=== PATIENT | female | born 1950 | race Caucasian/White ===

== ENCOUNTER → 2018-02-13 | Outpatient (CLI) | payer MEDICARE ==
[~2018-02-13] MED LIST: LEVE500T53 PO; LEVO50TA PO; ZONI50CA2 PO
[2018-02-13 12:18] LABS: BASOPHILS # (AUTO) 0.02 x10^3/uL (0-0.1); BASOPHILS % (AUTO) 0 % (0-1); EOSINOPHILS # (AUTO) 0.08 x10^3/uL (0-0.4); EOSINOPHILS % (AUTO) 1 % (1-7); LYMPHOCYTES # (AUTO) 1.62 x10^3/uL (1-3.4); LYMPHOCYTES % (AUTO) 28 % (22-44); MD NO; MEAN CORPUSCULAR HEMOGLOBIN 29.2 pg (27.0-34.8); MEAN CORPUSCULAR HGB CONC 33.3 g/dL (32.4-35.8); MEAN CORPUSCULAR VOLUME 87.9 fL (80-100); MEAN PLATELET VOLUME 8.7 fL (7.4-10.4); MONOCYTES # (AUTO) 0.44 x10^3/uL (0.2-0.8); MONOCYTES % (AUTO) 8 % (2-9); NEUTROPHILS # (AUTO) 3.59 x10^3/uL (1.8-6.8); NEUTROPHILS % (AUTO) 62 % (42-75); PLATELET COUNT 279 x10^3/uL (130-400); RED CELL DISTRIBUTION WIDTH 13.4 % (9.6-15.2)
[2018-02-13 12:20] LABS: MICROSCOPIC NOT IND
[2018-02-13 12:25] LABS: CULTURE INDICATED? NO
[2018-02-13 12:29] LABS: INTERNATIONAL NORMALIZED RATIO 0.99 (0.93-1.1); PROTHROMBIN TIME 10.5 Seconds (9.6-11.5)
[2018-02-13 12:30] LABS: ALBUMIN 4.2 g/dL (3.4-5.0); ANION GAP 7 mmol/L (5-15); CALCIUM 8.8 mg/dL (8.5-10.1); CHLORIDE 107 mmol/L (98-107)
[2018-02-13 12:34] LABS: ALANINE AMINOTRANSFERASE 28 U/L (12-78); ALKALINE PHOSPHATASE 79 U/L (45-117); BILIRUBIN,TOTAL 1.3 mg/dL (0.2-1.0); CREATININE 0.79 mg/dL (0.55-1.02); TOTAL PROTEIN 7.8 g/dL (6.4-8.2)
== END | disposition home or self-care (01) ==
LOC: STAR 11:12
PROVIDERS: ATTEND Neurological Surgery
DX: Z01.818 Encounter for other preprocedural examination (principal); M50.323 Other cervical disc degeneration at C6-C7 level; M48.02 Spinal stenosis, cervical region
CPT/HCPCS: 36415; 71046; 72050; 80053; 81003; 85025; 85610; 85730; 93005

== ENCOUNTER 2018-02-22 07:00 | Inpatient (IN) | payer MEDICARE ==
[~2018-02-22] VITALS: Ht 167.6 cm; Wt 57.6 kg
[2018-02-23] MEDS ORDERED: ZONI25CA2 PO (07:59)
[2018-02-23 08:01] VITALS: BP 181/83
[2018-02-23] MEDS ORDERED: FENTANYL PF 250 MCG/5ML ONE (08:12)
[2018-02-23] MEDS ORDERED: MIDAZOLAM 1 MG/ML, 2ML ONE (08:12)
[2018-02-23] MEDS ORDERED: BUPIVACAINE/PF-EPI 0.5% 1:200K ONE (08:21)
[2018-02-23] MEDS ORDERED: THROMBIN 5,000 UNIT VIAL TP ONE (08:21)
[2018-02-23] MEDS ORDERED: BACITRACIN 50,000 UNIT ONE (08:21)
[2018-02-23] MEDS ORDERED: ONDANSETRON 2MG/ML, 2ML ONE (08:23)
[2018-02-23] MEDS ORDERED: SUCCINYLCHOLINE 20 MG/ML, 10ML ONE (08:23)
[2018-02-23] MEDS ORDERED: CEFAZOLIN 1,000 MG ONE (08:23)
[2018-02-23] MEDS ORDERED: NEOSTIGMINE 1 MG/ML, 10ML ONE (08:23)
[2018-02-23] MEDS ORDERED: PROPOFOL 50 ML ONE ×2 (08:23→09:51)
[2018-02-23] MEDS ORDERED: PROPOFOL 10 MG/ML, 20ML ONE (08:23)
[2018-02-23] MEDS ORDERED: ROCURONIUM 10MG/ML,5ML ONE (08:23)
[2018-02-23] MEDS ORDERED: GLYCOPYRROLATE 0.2MG/1ML, 5ML ONE (08:23)
[2018-02-23] MEDS ORDERED: DEXAMETHASONE 4 MG/ML, 1ML ONE (08:23)
[2018-02-23] MEDS ORDERED: PROMETHAZINE 12.5 MG SUPP PR PRN (09:00)
[2018-02-23] MEDS ORDERED: ONDANSETRON ODT 8 MG PO PRN (09:00)
[2018-02-23] MEDS ORDERED: ACETAMINOPHEN 325 MG TABLET PO PRN (09:00)
[2018-02-23] MEDS ORDERED: MEPERIDINE/PF 25MG/0.5ML IVPush PRN (09:00)
[2018-02-23] MEDS ORDERED: PROMETHAZINE 25 MG/ML, 1ML IM PRN ×2 (09:00)
[2018-02-23] MEDS ORDERED: PROMETHAZINE 25 MG/ML, 1ML IV PRN (09:00)
[2018-02-23] MEDS ORDERED: FENTANYL PF 100 MCG/2ML IV PRN (09:00)
[2018-02-23] MEDS ORDERED: PROMETHAZINE 25 MG SUPP PR PRN (09:00)
[2018-02-23] MEDS ORDERED: MORPHINE SULFATE 4 MG/ML, 1ML IVPush PRN (09:00)
[2018-02-23] MEDS ORDERED: LABETALOL 5MG/ML, 20ML IV PRN ×2 (09:00→14:00)
[2018-02-23] MEDS ORDERED: OXYcodone 5 MG/5 ML ORAL.SOL UDC PO PRN (09:00)
[2018-02-23] MEDS ORDERED: hydrALAzine 20 MG/ML, 1ML IV PRN (09:00)
[2018-02-23] MEDS ORDERED: ONDANSETRON 2MG/ML, 2ML IV PRN ×2 (09:00→14:00)
[2018-02-23] MEDS ORDERED: PHENYLEPHRINE 10 MG/ML ONE (09:08)
[2018-02-23] MEDS ORDERED: HYDROmorphone 2 MG/ML, 1ML ONE (11:11)
[2018-02-23] MEDS ORDERED: OXYcodone 5 MG/5 ML ORAL.SOL UDC ONE (11:11)
[2018-02-23] MEDS: HYDROmorphone 2 MG/ML, 1ML IVPush PRN ×2 (11:25→11:33)
[2018-02-23] MEDS ORDERED: METHOCARBAMOL 1,000 MG in DEXTROSE 5% 100 ML IV ONE ×2 (11:30→14:00)
[2018-02-23] MEDS ORDERED: GLYCOPYRROLATE 0.4 MG/2 ML, 2ML ONE (11:31)
[2018-02-23 12:45] VITALS: BP 175/92
[2018-02-23] MEDS ORDERED: PHARMACY MAY ADJ FOR RENAL FX MC PRN (13:00)
[2018-02-23] MEDS: D5%-0.9% NACL+KCL 20MEQ 1,000 ML IV SCH (13:57)
[2018-02-23] MEDS ORDERED: HYDROmorphone 2 MG/ML, 1ML IM PRN (14:00)
[2018-02-23] MEDS ORDERED: HYDROmorphone 2 MG/ML, 1ML IVPush PRN (14:00)
[2018-02-23] MEDS ORDERED: BISACODYL 10 MG SUPP PR PRN (14:00)
[2018-02-23] MEDS ORDERED: HYDROcodone/APAP 5/325 TABLET PO PRN (14:00)
[2018-02-23] MEDS ORDERED: DIPHENHYDRAMINE 50 MG/ML, 1ML IM PRN (14:00)
[2018-02-23] MEDS ORDERED: METHOCARBAMOL 750 MG in DEXTROSE 5% 100 ML IV SCH (14:00)
[2018-02-23] MEDS ORDERED: MAGNESIUM HYDROXIDE 8%, 30ML UDC PO PRN (14:00)
[2018-02-23] MEDS ORDERED: DIPHENHYDRAMINE 50 MG/ML, 1ML IVPush PRN (14:00)
[2018-02-23] MEDS ORDERED: DIPHENHYDRAMINE 50 MG CAPSULE PO PRN (14:00)
[2018-02-23] MEDS ORDERED: METHOCARBAMOL 750 MG TABLET PO SCH (14:00)
[2018-02-23] MEDS: OXYcodone/APAP 5/325MG TABLET PO PRN ×2 (14:49→20:24)
[2018-02-23] MEDS: CEFAZOLIN PMX 1GM/50ML 50 ML IVPB SCH (16:34)
[2018-02-23 20:00] VITALS: BP 95/50
[2018-02-23] MEDS ORDERED: ZONISAMIDE 50 MG CAPSULE PO SCH (21:00)
[2018-02-23] MEDS: METHOCARBAMOL 750 MG in DEXTROSE 5% 100 ML IV SCH (22:33)
[2018-02-24 00:08] VITALS: BP 137/72
[2018-02-24] MEDS: CEFAZOLIN PMX 1GM/50ML 50 ML IVPB SCH (01:15)
[2018-02-24 03:35] VITALS: BP 118/71
[2018-02-24] MEDS: METHOCARBAMOL 750 MG in DEXTROSE 5% 100 ML IV SCH (05:35)
[2018-02-24 05:40] LABS: BASOPHILS # (AUTO) 0.02 x10^3/uL (0-0.1); BASOPHILS % (AUTO) 0 % (0-1); EOSINOPHILS # (AUTO) 0.01 x10^3/uL (0-0.4); EOSINOPHILS % (AUTO) 0 % (1-7); LYMPHOCYTES # (AUTO) 1.65 x10^3/uL (1-3.4); LYMPHOCYTES % (AUTO) 16 % (22-44); MD NO; MEAN CORPUSCULAR HGB CONC 33.9 g/dL (32.4-35.8); MEAN CORPUSCULAR VOLUME 88.6 fL (80-100); MONOCYTES # (AUTO) 0.93 x10^3/uL (0.2-0.8); MONOCYTES % (AUTO) 9 % (2-9); NEUTROPHILS # (AUTO) 7.66 x10^3/uL (1.8-6.8); NEUTROPHILS % (AUTO) 75 % (42-75); PLATELET COUNT 245 x10^3/uL (130-400); RED BLOOD COUNT 4.05 x10^6/uL (3.82-5.3); RED CELL DISTRIBUTION WIDTH 13.2 % (9.6-15.2)
[2018-02-24] MEDS: OXYcodone/APAP 5/325MG TABLET PO PRN (05:40)
[2018-02-24 05:51] LABS: CHLORIDE 107 mmol/L (98-107)
[2018-02-24] MEDS ORDERED: LEVOTHYROXINE 50 MCG TABLET PO SCH (06:00)
[2018-02-24 06:03] LABS: ANION GAP 8 mmol/L (5-15); CALCIUM 7.8 mg/dL (8.5-10.1); CREATININE 0.75 mg/dL (0.55-1.02)
[2018-02-24 07:06] VITALS: BP 151/78
[2018-02-24] MEDS ORDERED: methylPREDNISolone*ACETATE* 80 MG/ML IM ONE (08:30)
[2018-02-24] MEDS ORDERED: SENNA/DOCUSATE TABLET PO SCH (09:00)
[2018-02-24] MEDS ORDERED: ZONISAMIDE PO SCH (09:00)
[2018-02-24] MEDS: D5%-0.9% NACL+KCL 20MEQ 1,000 ML IV SCH ×2 (09:31)
[2018-02-24] MEDS ORDERED: OXYC-302 PO (09:42)
[2018-02-24] MEDS ORDERED: CEPH-368 PO (09:43)
[2018-02-24] MEDS ORDERED: CEPHALEXIN 500 MG CAPSULE PO SCH (11:00)
[2018-02-25] MEDS ORDERED: METHOCARBAMOL 750 MG TABLET PO SCH (14:00)
== END 2018-02-24 11:05 | disposition home or self-care (01) | DRG 473 ==
LOC: 4NOR 02-23 06:03 → DCLOUNGE 02-24 10:55
PROVIDERS: ADMIT Neurological Surgery; ATTEND Neurological Surgery
PROC: 0RB30ZZ Excision of Cervical Vertebral Disc, Open Approach (ICD-10-PCS; 2018-02-23)
PROC: 4A11X4G Monitoring of Peripheral Nervous Electrical Activity, Intraoperative, External Approach (ICD-10-PCS; 2018-02-23)
PROC: 0RG20A0 Fusion of 2 or more Cervical Vertebral Joints with Interbody Fusion Device, Anterior Approach, Anterior Column, Open Approach (ICD-10-PCS; principal; 2018-02-23 09:00)
DX: M48.02 Spinal stenosis, cervical region (principal); M19.90 Unspecified osteoarthritis, unspecified site; G89.29 Other chronic pain; M25.78 Osteophyte, vertebrae; M50.122 Cervical disc disorder at C5-C6 level with radiculopathy; M50.123 Cervical disc disorder at C6-C7 level with radiculopathy; G40.909 Epilepsy, unspecified, not intractable, without status epilepticus; I11.0 Hypertensive heart disease with heart failure; I50.9 Heart failure, unspecified; E11.9 Type 2 diabetes mellitus without complications; E03.9 Hypothyroidism, unspecified
CPT/HCPCS: 36415; 72040; 80048; 85025; C1713; G0378; J0690; J1100; J1170; J2250; J2405; J2704; J2710; J3010; J3490; C1762; J0330; J1040; J2370; J2800; J3480

== ENCOUNTER 2019-05-19 02:16 | Observation (INO) | payer MEDICARE ==
[~2019-05-19] VITALS: Ht 167.6 cm; Wt 57.0 kg
[~2019-05-19 02:16] MED LIST changes: +CEPH-368 PO; +OXYC-302 PO; +ZONI25CA16 PO; +ZONI50CA10 PO; -ZONI50CA2 PO
[2019-05-19] MEDS ORDERED: SODIUM CHLORIDE FLUSH 10ML SYR IVF ONE (02:30)
[2019-05-19 02:39] LABS: BASOPHILS # (AUTO) 0.04 x10^3/uL (0-0.1); BASOPHILS % (AUTO) 1 % (0-1); EOSINOPHILS # (AUTO) 0.11 x10^3/uL (0-0.4); EOSINOPHILS % (AUTO) 2 % (1-7); LYMPHOCYTES # (AUTO) 2.48 x10^3/uL (1-3.4); LYMPHOCYTES % (AUTO) 35 % (22-44); MD NO; MEAN CORPUSCULAR HGB CONC 34.1 g/dL (32.4-35.8); MEAN CORPUSCULAR VOLUME 87.9 fL (80-100); MONOCYTES # (AUTO) 0.75 x10^3/uL (0.2-0.8); MONOCYTES % (AUTO) 11 % (2-9); NEUTROPHILS # (AUTO) 3.75 x10^3/uL (1.8-6.8); NEUTROPHILS % (AUTO) 53 % (42-75); PLATELET COUNT 272 x10^3/uL (130-400); RED BLOOD COUNT 4.26 x10^6/uL (3.82-5.3); RED CELL DISTRIBUTION WIDTH 13.2 % (9.6-15.2)
[2019-05-19 02:43] LABS: ALANINE AMINOTRANSFERASE 14 U/L (12-78); ALBUMIN 3.7 g/dL (3.4-5.0); ANION GAP 8 mmol/L (5-15); CALCIUM 8.5 mg/dL (8.5-10.1); CHLORIDE 107 mmol/L (98-107); CREATININE 0.81 mg/dL (0.55-1.02)
[2019-05-19 02:48] LABS: ALKALINE PHOSPHATASE 79 U/L (45-117); BILIRUBIN,TOTAL 1.7 mg/dL (0.2-1.0); TROPONIN I < 0.015 ng/mL (0.000-0.045)
--- NOTE | 2019-05-19 02:51 | NUR ---
[facility] as a transfer from [facility] for elevated troponin (0.09 at [facility]). [facility] at [facility], pt recieved IV NS 250ml, IV diazepam 5mg x2, PO 325 ASA, SL nitro 0.4 x3, and nitro paste.
[2019-05-19] MEDS ORDERED: DIAZ5TAB PO (03:03)
[2019-05-19] MEDS ORDERED: CHOL10003 PO (03:03)
[2019-05-19] MEDS ORDERED: BACL-19 PO (03:03)
--- NOTE | 2019-05-19 03:22 | NUR ---
pt continually asking for iv valium. pt was given 5mg valium [employer] at 2237 and 0000. pt informed of risks of given too much valium and after talking with dr silva, pt will not be given valium at this time.
--- NOTE | 2019-05-19 03:47 | NUR ---
pt continually asking for valium for her 'seizure disorder' pt again educated on medications and encouraged to be patient as we work through our process to admit her into the hospital.
[2019-05-19] MEDS ORDERED: LIDOCAINE GEL 2%, 5ML TP ONE (04:00)
--- NOTE | 2019-05-19 04:23 | NUR ---
report to vinod covarrubias
[2019-05-19 05:01] VITALS: BP 179/86
[2019-05-19] MEDS ORDERED: ONDANSETRON 2MG/ML, 2ML IVPush PRN (06:00)
[2019-05-19] MEDS ORDERED: morphine SULFATE 10 MG/ML, 1ML IVPush PRN (06:00)
[2019-05-19 06:36] LABS: TROPONIN I < 0.015 ng/mL (0.000-0.045)
[2019-05-19 06:55] VITALS: BP 158/83
[2019-05-19] MEDS ORDERED: ZONI100C29 PO (10:24)
[2019-05-19] MEDS ORDERED: DULO20CA45 PO (10:24)
[2019-05-19] MEDS ORDERED: DIAZ5TAB4 PO (10:24)
[2019-05-19] MEDS ORDERED: CLON0.5T20 PO (10:24)
[2019-05-19] MEDS ORDERED: METO10TA2 PO (10:24)
[2019-05-19] MEDS ORDERED: BACL20TA PO (10:24)
[2019-05-19] MEDS ORDERED: POTASSIUM CHLORIDE 20 MEQ TAB.ER.PRT PO ONE (10:30)
[2019-05-19 12:05] LABS: TROPONIN I < 0.015 ng/mL (0.000-0.045)
[2019-05-19 12:44] VITALS: BP 129/78
== END 2019-05-19 15:25 | disposition home or self-care (01) ==
LOC: ED 03:38 → EDIP 03:39 → INTOOBSV 03:39 → 5SO 04:48 → DCLOUNGE 15:18
PROVIDERS: ADMIT Family Medicine; ATTEND Family Medicine
DX: R07.89 Other chest pain (principal); R94.31 Abnormal electrocardiogram [ECG] [EKG]; K80.20 Calculus of gallbladder without cholecystitis without obstruction; E87.6 Hypokalemia; M62.838 Other muscle spasm; I10 Essential (primary) hypertension; Z79.899 Other long term (current) drug therapy
CPT/HCPCS: 36415; 76705; 80053; 83880; 84484; 85025; 93005; 93017; 99285; G0378